=== PATIENT | female | born 1995 | race American Indian/Alaskan Native ===

== ENCOUNTER 2017-01-13 16:49 | Emergency (ER) | payer MEDICAID ==
[2017-01-13 20:28] LABS: Basophils % (Auto) 0.3 % (0.0-1.8); Eosinophils % (Auto) 0.1 % (0.0-4.3); Hematocrit 33.7 % (30.3-42.9); Hemoglobin 11.8 gm/dl (10.1-14.3); Mean Corpuscular HGB Conc 35 % (30-34); Mean Corpuscular Hemoglobin 34 pg (28-32); Mean Corpuscular Volume 96 fl (79-97); Platelet Count 270 K/mm3 (140-440); Red Cell Distribution Width 12.9 % (13.2-15.2); White Blood Count 10.4 K/mm3 (4.5-11.0)
[2017-01-13 20:49] LABS: Alanine Aminotransferase 8 units/L (7-56); Albumin 3.8 g/dL (3.9-5); Albumin/Globulin Ratio 1.6 %; Alkaline Phosphatase 66 units/L (35-129); Anion Gap 22 mmol/L; BUN/Creatinine Ratio 15; Blood Urea Nitrogen 6 mg/dL (7-17); Carbon Dioxide 21 mmol/L (22-30); Chloride 98.9 mmol/L (98-107); Glucose 66 mg/dL (65-100); Potassium 3.9 mmol/L (3.6-5.0); Sodium 138 mmol/L (137-145); Total Protein 6.2 g/dL (6.3-8.2)
--- NOTE | 2017-01-13 21:43 | Emergency Department Report ---
ED General Adult HPI - General Chief complaint: Syncope Stated complaint: SYNCOPE Time Seen by Provider: 01/13/17 21:31 Source: patient, EMS Mode of arrival: Stretcher Limitations: Other - History of Present Illness Initial comments: 21 yo female who comes in today due to syncope. She states that she was in the store prior to arrival and passed out. She is currently 18 weeks , and is current with OB. She admits that she has had these syncopal episodes since the beginning of her . During the syncopal episode, she states that she fell and hit her head, and that she blacked out. She is currently denying any pain. Denies any past medical history. One live child currently. No symptoms currently. -: week(s) (Eighteen-since the beginning of ) Associated Symptoms: other (None ) Treatments Prior to Arrival: none - Related Data Previous Rx's Medication Instructions Recorded Last Taken Type Cephalexin 500 mg PO BID #14 capsule 01/13/17 Unknown Rx Allergies Allergy/AdvReac Type Severity Reaction Status Date / Time No Known Allergies Allergy Unverified 01/13/17 16:58 ED Review of Systems ROS: Stated complaint: SYNCOPE Other details as noted in HPI Constitutional: denies: chills, fever Eyes: denies: eye pain, eye discharge, vision change ENT: denies: ear pain, throat pain Respiratory: denies: cough, shortness of breath, wheezing Cardiovascular: denies: chest pain, palpitations Endocrine: no symptoms reported Gastrointestinal: denies: abdominal pain, nausea, diarrhea Genitourinary: denies: urgency, dysuria, discharge Musculoskeletal: denies: back pain, joint swelling, arthralgia Skin: denies: rash, lesions Neurological: denies: headache, weakness, paresthesias Psychiatric: denies: anxiety, depression Hematological/Lymphatic: denies: easy bleeding, easy bruising ED Past Medical Hx - Past Medical History Previous Medical History?: No - Surgical History Past Surgical History?: No - Social History Smoking Status: Never Smoker Substance Use Type: None - Medications Home Medications: Home Medications Medication Instructions Recorded Confirmed Last Taken Type Cephalexin 500 mg PO BID #14 capsule 01/13/17 Unknown Rx ED Physical Exam - General Limitations: Other General appearance: alert, in no apparent distress - Head Head exam: Present: atraumatic, normocephalic - Eye Eye exam: Present: normal appearance - ENT ENT exam: Present: normal exam, mucous membranes moist - Neck Neck exam: Present: normal inspection - Respiratory Respiratory exam: Present: normal lung sounds bilaterally. Absent: respiratory distress - Cardiovascular Cardiovascular Exam: Present: regular rate, normal rhythm. Absent: systolic murmur, diastolic murmur, rubs, gallop - GI/Abdominal GI/Abdominal exam: Present: tenderness (abdominal- ), other - Extremities Exam Extremities exam: Present: normal inspection - Back Exam Back exam: Present: normal inspection - Neurological Exam Neurological exam: Present: oriented X3, CN II-XII intact - Psychiatric Psychiatric exam: Present: normal affect, normal mood - Skin Skin exam: Present: warm, dry, intact, normal color. Absent: rash ED Course Vital Signs 01/13/17 01/13/17 01/13/17 16:54 16:58 17:00 Temperature 97.6 F Pulse Rate 99 H Respiratory 16 Rate Blood Pressure 123/65 123/65 Blood Pressure 123/65 [Left] O2 Sat by Pulse 88 100 100 Oximetry 01/13/17 01/13/17 01/13/17 17:30 18:00 20:39 Temperature Pulse Rate Respiratory Rate Blood Pressure 119/64 119/64 106/60 Blood Pressure [Left] O2 Sat by Pulse 100 98 100 Oximetry 01/13/17 01/13/17 01/13/17 21:00 21:30 22:00 Temperature Pulse Rate Respiratory Rate Blood Pressure 119/72 115/64 103/61 Blood Pressure [Left] O2 Sat by Pulse 100 100 100 Oximetry 01/13/17 01/13/17 22:30 23:00 Temperature Pulse Rate Respiratory Rate Blood Pressure 110/69 112/67 Blood Pressure [Left] O2 Sat by Pulse 100 98 Oximetry - Reevaluation(s) Reevaluation #1: 01/13/17 22:02 Upon further inquiry, the patient was hypoglycemic at the store prior to arrival. She was given sugar pills at the scene by EMS. Blood glucose increased to 74. Symptom free currently. ED Medical Decision Making - Lab Data Result diagrams: 01/13/17 19:44 01/13/17 19:44 Critical care attestation.: If time is entered above; I have spent that time in minutes in the direct care of this critically ill patient, excluding procedure time. ED Disposition Clinical Impression: UTI (urinary tract infection), Disposition: DC-01 TO HOME OR SELFCARE Is pt being admited?: No Does the pt Need Aspirin: No Condition: Stable Instructions: Urinary Tract Infection in Women (ED), (ED) Additional Instructions: Take medicine as prescribed. Follow up with your driver medic as scheduled. Prescriptions: Cephalexin 500 mg PO BID #14 capsule Referrals: PRIMARY CARE, [Primary Care Provider] - 3-5 Days Time of Disposition: 23:30
[2017-01-13 22:43] LABS: Creatine Kinase 27 units/L (30-135)
[2017-01-13 22:47] LABS: Creatine Kinase MB < 1.0 ng/mL (0.0-4.0)
[2017-01-13 22:53] LABS: Bacteria,Urine 1+ /HPF (Negative); Bilirubin,Urine NEG (Negative); Blood,Urine NEG (Negative); Ketones,Urine NEG (Negative); Leukocyte Esterase,Urine MOD (Negative); Mucus,Urine FEW /HPF; Nitrite,Urine NEG (Negative); Protein,Urine <15 mg/dL mg/dL (Negative); Urobilinogen,Urine < 2.0 mg/dL (<2.0)
[2017-01-13] MEDS ORDERED: ROCEPHIN IM ONE (23:25)
[2017-01-13] MEDS ORDERED: XYLOCAINE 1% MPF 5 mL INFILTRATI ONE (23:25)
[2017-01-14 00:28] VITALS: BP 103/70
== END 2017-01-14 00:40 | disposition home or self-care (01) ==
LOC: ED 16:49
DX: O23.42 Unspecified infection of urinary tract in pregnancy, second trimester (principal); O26.892 Other specified pregnancy related conditions, second trimester; R55 Syncope and collapse; Z3A.18 18 weeks gestation of pregnancy
CPT/HCPCS: 36415; 80053; 81001; 82550; 82553; 84484; 85025; 96372; 99284; J0696

== ENCOUNTER 2017-04-24 21:09 | Outpatient (CLI) | payer MEDICAID ==
[2017-04-24 21:28] VITALS: BP 121/71
[2017-04-24] MEDS ORDERED: LACTATED RINGERS 1,000 ML IV ONE (21:45)
[2017-04-24] MEDS ORDERED: NORMOSOL-R PH 7.4 1,000 ML IV ONE (21:46)
[2017-04-24 22:09] LABS: Bilirubin,Urine Negative (Negative); Blood,Urine Negative (Negative); Color,Urine Straw (Yellow); Protein,Urine <15 mg/dL mg/dL (Negative); Urobilinogen,Urine < 2.0 mg/dL (<2.0)
[2017-04-24 22:10] LABS: RBC,Urine < 1.0 /HPF (0.0-6.0); WBC,Urine < 1.0 /HPF (0.0-6.0)
== END 2017-04-24 23:42 | disposition home or self-care (01) ==
LOC: TRG 21:09
PROVIDERS: ATTEND Obstetrics & Gynecology
DX: O26.893 Other specified pregnancy related conditions, third trimester (principal); R25.2 Cramp and spasm; Z3A.32 32 weeks gestation of pregnancy
CPT/HCPCS: 59025; 81001; 96360; 96361

== ENCOUNTER 2017-05-12 17:49 | Outpatient (CLI) | payer MEDICAID ==
[2017-05-12 19:08] VITALS: BP 109/66
== END 2017-05-12 20:00 | disposition home or self-care (01) ==
LOC: TRG 17:49 → LD 17:50 → TRG 20:00
PROVIDERS: ATTEND Obstetrics & Gynecology
DX: O47.03 False labor before 37 completed weeks of gestation, third trimester (principal); Z3A.35 35 weeks gestation of pregnancy
CPT/HCPCS: 59025